=== PATIENT | male | born 1950 | race Caucasian/White ===

== ENCOUNTER 2020-08-13 08:06 | Outpatient (CLI) | payer MEDICARE, OTHER, SELFPAY ==
--- NOTE | 2020-08-13 08:15 | XR_ITS ---
WS: [id number] Exam: XR KUB [id number] Date/Time of Exam: 08/13/2020 8:15 AM Reason For Exam: N20.0 - Calculus of kidney Comparison 02/10/2019. No bowel obstruction or free air. No calcifications noted in the region of the kidneys. Visualized or ingrid margins are intact. XR/XR KUB [id number] IMPRESSION: 1. No no acute abdominal finding. 2. No calcified densities seen in the region of the kidneys.
== END 2020-08-13 08:07 | disposition home or self-care (01) ==
PROVIDERS: PCP Internal Medicine; Visit Provider Urology
DX: N20.0 Calculus of kidney (principal)
CPT/HCPCS: 74018; 81003; 87086; 88112; G0103

== ENCOUNTER 2020-09-12 08:45 | Outpatient (CLI) | payer MEDICARE, OTHER, SELFPAY ==
[2020-09-12 10:18] LABS: Blood Urea Nitrogen 16 mg/dL (8-23); Glomerular Filtration Rate 83.4 mL/min (90-130)
--- NOTE | 2020-09-12 10:30 | CT_ITS ---
WS: [id number] CT ABDOMEN AND PELVIS WITH AND WITHOUT CONTRAST HISTORY: MICROSCOPIC HEMATURIA TECHNIQUE: Unenhanced 5 mm axial imaging first performed through the abdomen. Post contrast imaging t hrough the abdomen and pelvis. Oral contrast has not been provided. Sagittal and coronal reformats a re submitted. All CT scans at [facility] use at least one of these dose optimization tech niques: automated exposure control; mA and/or kV adjustment per patient size (includes targeted exams where dose is matched to clinical indication); or iterative reconstruction. CONTRAST: Omnipaque 300; 95 mL IV. DLP: 3144.54 mGy.cm COMPARISON: 05/14/2017 Lung bases are clear. Heart size is normal. Small hiatal hernia. Normal size liver. There are numerous low-attenuation masses throughout the liver. The largest in the inferior RIGHT lobe measures 7.6 x 6.8 cm. Majority of these masses or cysts. Some of these smaller nodules cannot be evaluated completely. Normal portal vein. No bile duct obstruction. Gallbladder is negative. Mild splenic atrophy. Normal size spleen with granulomata. Ovoid low-attenuation 3.1 cm RIG HT adrenal mass with negative Hounsfield units on the noncontrast exam. LEFT adrenal gland is normal. Minimal atherosclerosis aorta with no aneurysm. RIGHT kidney: 10.6 cm in length. No calcification or obstruction. Stable 1.5 cm cyst lower pole. No f illing defects within the renal pelvis or the partially opacified RIGHT ureter. LEFT kidney: 11.6 cm in length. No renal obstruction or calcification. There are several parapelvic c ysts in the mid to lower kidney. Cortical cyst in the upper pole is unchanged with maximum diameter o f 1.1 cm. No solid mass. 2 small to characterize cortical hypodensities. Partially visualized and opa cified ureter. No GI tract obstruction. Numerous diverticula in the descending and sigmoid colon without acute infla mmation. No free fluid or abscess. Very mildly prominent prostate gland. No enhancing masses within t he bladder. Inguinal canals are patent bilaterally containing fat. Lumbar spondylosis. Fat-containing umbilical hernia. CT/CT abdomen pelvis wo/w [id number] IMPRESSION: 1. No renal calcification or obstruction. 2. Bilateral low-attenuation renal masses. Majority of these are cysts. Some a re too small to characterize. 3. No uroepithelial lesion in the visualized opacified ureters. 4. Hepatic cysts and additional too small to characterize low-attenuation nodu les. 5. RIGHT adrenal adenoma. 6. Significant diverticular disease in the descending and sigmoid colon withou t acute diverticulitis. 7. Mild prostate enlargement.
[2020-09-12] MEDS: iohexol 300 mg/mL 100 mL Btl IV (10:48)
== END 2020-09-12 08:46 | disposition home or self-care (01) ==
LOC: CT 08:45
PROVIDERS: PCP Internal Medicine; Visit Provider Urology
DX: R31.21 Asymptomatic microscopic hematuria (principal); N28.89 Other specified disorders of kidney and ureter; K76.89 Other specified diseases of liver; D35.01 Benign neoplasm of right adrenal gland; N40.0 Benign prostatic hyperplasia without lower urinary tract symptoms
CPT/HCPCS: 36415; 74178; 81003; 82565; 84520

== ENCOUNTER 2021-02-11 19:16 | Observation (INO) | payer MEDICARE, OTHER, SELFPAY ==
[2021-02-11] VITALS (21 sets, daily range): BP systolic 130–169; BP diastolic 81–93; PULSE 39–78; RESP 12–22; TEMP 36.3–36.6; O2SAT 93–100; BMI 31.2; BMI 31.6
--- NOTE | 2021-02-11 19:26 | CTR_ITS ---
PROCEDURE INFORMATION: Exam: CT Head Without Contrast Exam date and time: 02/11/2021 7:26 PM Age: 70 years old Clinical indication: Dizziness and other: Sudden onset n/v; Additional info: Symptoms of acute stroke TECHNIQUE: Imaging protocol: Computed tomography of the head without contrast. Radiation optimization: All CT scans at this facility use at least one of these dose optimization techniques: automated exposure control; mA and/or kV adjustment per patient size (includes targeted exams where dose is matched to clinical indication); or iterative reconstruction. Other technique: STROKE PROTOCOL was implemented. COMPARISON: No relevant prior studies available. RADIATION DOSE METRICS: Total DLP (mGy-cm): 979.86 FINDINGS: Brain: No hemorrhage or evidence of acute infarction is seen. No mass effect. Cerebral ventricles: No ventriculomegaly. Paranasal sinuses: Visualized sinuses are unremarkable. No fluid levels. Mastoid air cells: Visualized mastoid air cells are well aerated. Bones/joints: Unremarkable. No acute fracture. Soft tissues: Unremarkable. CT/CT head wo con* [id number] IMPRESSION: No acute intracranial abnormality. ASSESSMENT: ASPECTS ([place] Stroke Program Early CT Score) is 10. Radiation Dose CTDIVOL = (mGy): DLP = 979.86 (mGy-cm)
--- NOTE | 2021-02-11 19:26 | ECG_ITS ---
[facility] Test Date: 2021-02-11 Pat Name: Ap Matta Department: Room: Gender: Male Business Assistant: : 1950 Requested By: Jignesh Chan Order Number: [id number] Finn MD: Kyler Mccarthy M.D. Measurements Intervals [place] Rate: 57 P: 20 MA: 232 QRS: 4 QRSD: 134 T: 11 QT: 459 QTc: 450 Interpretive Statements SINUS BRADYCARDIA WITH FIRST DEGREE AV BLOCK INTRAVENTRICULAR CONDUCTION DELAY [130+ ms QRS DURATION] Nonspecific T wave changes No previous ECG available for comparison Electronically Signed On 02-11-2021 23:51:27 CDT by Kyler Mccarthy M.D. [email or web address]
--- NOTE | 2021-02-11 19:30 | CTR_ITS ---
PROCEDURE INFORMATION: Exam: CT Angiography Head With Contrast, Arteriography Exam date and time: 02/11/2021 7:30 PM Age: 70 years old Clinical indication: Dizziness and giddiness; Patient HX: Sudden onset of dizziness and n/v; Additional info: CVA TECHNIQUE: Imaging protocol: Computed tomography angiography of the head with contrast. Exam focused on the arteries. 3D rendering (Not supervised by radiologist): MIP and/or 3D reconstructed images were created by the technologist. Radiation optimization: All CT scans at this facility use at least one of these dose optimization techniques: automated exposure control; mA and/or kV adjustment per patient size (includes targeted exams where dose is matched to clinical indication); or iterative reconstruction. Contrast material: VISI 320; Contrast volume: 95 ml; Contrast route: INTRAVENOUS (IV); COMPARISON: CT head wo con* [id number] 02/11/2021 7:31 PM RADIATION DOSE METRICS: Total DLP (mGy-cm): 2254.82 FINDINGS: ANTERIOR CIRCULATION: Right internal carotid artery: Unremarkable. Intracranial segment is patent with no significant stenosis. No aneurysm. Right middle cerebral artery: Unremarkable. No occlusion or significant stenosis. No aneurysm. Right anterior cerebral artery: Unremarkable. No occlusion or significant stenosis. No aneurysm. Left internal carotid artery: Unremarkable. Intracranial segment is patent with no significant stenosis. No aneurysm. Left middle cerebral artery: Unremarkable. No occlusion or significant stenosis. No aneurysm. Left anterior cerebral artery: Unremarkable. No occlusion or significant stenosis. No aneurysm. POSTERIOR CIRCULATION: Right vertebral artery: Unremarkable. No occlusion or significant stenosis. No aneurysm. Left vertebral artery: Unremarkable. No occlusion or significant stenosis. No aneurysm. Basilar artery: Unremarkable. No occlusion or significant stenosis. No aneurysm. Right posterior cerebral artery: Unremarkable. No occlusion or significant stenosis. No aneurysm. Left posterior cerebral artery: Unremarkable. No occlusion or significant stenosis. No aneurysm. IMPRESSION: Patent intracranial arteries. PROCEDURE INFORMATION: Exam: CT Angiography Neck With Contrast Exam date and time: 02/11/2021 7:30 PM Age: 70 years old Clinical indication: Dizziness and giddiness; Patient HX: Sudden onset of dizziness and n/v; Additional info: CVA TECHNIQUE: Imaging protocol: Computed tomography angiography of the neck with contrast. 3D rendering (Not supervised by radiologist): MIP and/or 3D reconstructed images were created by the technologist. Radiation optimization: All CT scans at this facility use at least one of these dose optimization techniques: automated exposure control; mA and/or kV adjustment per patient size (includes targeted exams where dose is matched to clinical indication); or iterative reconstruction. Contrast material: VISI 320; Contrast volume: 95 ml; Contrast route: INTRAVENOUS (IV); COMPARISON: CT head wo con* [id number] 02/11/2021 7:31 PM RADIATION DOSE METRICS: Total DLP (mGy-cm): 2254.82 FINDINGS: Right common carotid artery: No stenosis. No dissection or occlusion. Right internal carotid artery: No stenosis of the extracranial segment. No dissection or occlusion. Right external carotid artery: No occlusion or stenosis of the origin. Left common carotid artery: No stenosis. No dissection or occlusion. Left internal carotid artery: No stenosis of the extracranial segment. No dissection or occlusion. Left external carotid artery: No occlusion or stenosis of the origin. Right vertebral artery: No stenosis. No dissection or occlusion. Left vertebral artery: No stenosis. No dissection or occlusion. Soft tissues: Normal. No significant soft tissue swelling. Bones/joints: Mild degenerative changes are observed in the cervical spine. No acute fracture. Spinal alignment is normal. CT/CT angio headneck* [id number] IMPRESSION: Patent neck carotid and vertebral arteries. REFERENCES: NASCET CRITERIA. The degree of internal carotid artery stenosis is based on NASCET criteria. Normal is no stenosis. Mild is less than 50% stenosis. Moderate is 50-69% stenosis. Severe is 70% to 99% stenosis. Total occlusion is no detectable patent lumen. Radiation Dose CTDIVOL = (mGy): DLP = 2254.82~2254.82 (mGy-cm)
[2021-02-11 19:37] LABS: Basophils # 0.1 10^3/uL (0.0-0.1); Basophils % 0.5 %; Eosinophils # 0.1 10^3/uL (0.0-0.8); Eosinophils % 0.9 %; Hematocrit 45.1 % (42.0-52.0); Hemoglobin 15.4 g/dL (11.7-16.6); Lymphocytes # 4.6 10^3/uL (0.8-4.8); Lymphocytes % 49.1 %; Mean Corpuscular HGB Conc 34.1 g/dL (30.0-36.0); Mean Corpuscular Hemoglobin 32.3 pg (28.0-34.0); Mean Corpuscular Volume 94.5 fl (80-94); Mean Platelet Volume 10.8 fL (7.4-10.4); Monocytes # 0.8 10^3/uL (0.2-0.9); Monocytes % 8.1 %; Neutrophils # 3.88 10^3/uL (1.8-7.7); Neutrophils % 41.2 %; Nucleated Red Blood Cells % 0 %; Platelet Count 184 10^3/cmm (130-400); Red Blood Count 4.77 10^6/uL (4.1-5.3); Red Cell Distribution Width 12.3 % (12.1-15.1); White Blood Count 9.4 10^3/uL (4.0-10.0)
[2021-02-11] MEDS: iodixanol 320 mg/mL 100mL Btl IV (19:37)
--- NOTE | 2021-02-11 19:37 | W.ED.NEUROSD ---
HPI - Neuro Symptoms/Deficit General: Chief Complaint: Nausea/Vomiting/Diarrhea Stated Complaint: N/V, DIZZY Time Seen by Provider: 02/11/21 19:19 Source: patient and EMS Mode of arrival: EMS Limitations: no limitations History of Present Illness: HPI Narrative: 70-year-old male states he had a sudden onset of dizziness at 6:30 PM. He states that he has had severe dizziness with any movement along with vomiting patient was given 8 mg of Zofran in route states he is feeling improved he had no weakness. He has no history of CVA lower peripheral vertigo in the past. X-ray from symptoms have improved but when I did standing up to walk him he vomited he was able to walk but did have some ataxia. Associated symptoms: Reports nausea and vomiting; Deny chest pain Review of Systems Const: Denies: fever(s), chills, body aches or change in appetite Eyes: Denies: blurry vision or eye discomfort ENMT: Denies: throat pain or dental pain Card: Denies: chest pain Resp: Denies: dyspnea GI: Reports: nausea and vomiting : Denies: dysuria Musc: Denies: neck pain or back pain Skin/Breast: Denies: rash Neuro: Reports: difficulty walking and dizziness Psych: Denies: depression Arsalan/Lymph: Denies: easy bruising All/Imm: Denies: urticaria PFSH ED PFSH: Medical History Adenoma of right adrenal gland Asymptomatic microscopic hematuria Hepatic cyst Hx of colonic polyps Parapelvic renal cyst Premature ventricular contraction Urolithiasis Not prolific. Did require treatment with lithotripsy Surgical History Hx of circumcision Hx of lithotripsy Family History Father , AT AGE 82 METASTATIC PROSTATE CANCER Cancer Hypertension Sister Cancer BREAST Hypertension Mother , AT AGE 76 ALZHEIMERS Dementia Social History Smoking and tobacco status: former smoker Alcohol intake: current Marital status: Current occupational status: retired NIH stroke score NIHSS: Level Of Consciousness - 1a: 0 Level Of Consciousness Questions - 1b: Both Correct Level Of Consciousness Commands - 1c: Both Correct Best Gaze - 2: Normal Visual Gill - 3: No Visual Loss Facial Palsy - 4: Normal Motor Arm Right - 5: No Drift Motor Arm Left - 5: No Drift Motor Leg Right - 6: No Drift Motor Leg Left - 6: No Drift Limb Ataxia - 7: Absent Sensory - 8: Normal Best Language - 9: No Aphasia Dysarthia - 10: Normal Extinction And Inattention - 11: 0 Score: Total Score: 0 Physical Exam Const: COMMON NORMALS: no acute distress, patient oriented x3, healthy appearing and alert ORIENTATION/CONSCIOUSNESS: Yes oriented to person, Yes oriented to place and Yes oriented to time HENMT: COMMON NORMALS: normocephalic and atraumatic HEAD & SCALP: normocephalic and atraumatic Eye: COMMON NORMALS: Equal, round and reactive pupils present and EOMs intact bilaterally PUPIL: Yes Equal, round and reactive pupils present Neck/C-Spine: COMMON NORMALS: full ROM and supple Chest: COMMONS NORMALS: normal inspection of the chest and normal palpation of entire chest wall Resp: COMMON NORMALS: normal respiratory effort, No retractions, No use of accessory muscles and clear to auscultation bilaterally AUSCULTATION: clear to auscultation bilaterally Cardio: COMMON NORMALS: regular rate, regular rhythm and No murmurs present (Cardio) RATE: regular rate RHYTHM: regular rhythm GI: COMMON NORMALS: Normal to inspection, nondistended, normoactive bowel sounds present, Soft to palpation, non-tender and no masses PALPATION: Yes Soft to palpation Extremity: COMMON NORMALS: normal to inspection and full ROM Neuro: COMMON NORMALS: patient oriented x3, moves all extremities and no focal motor deficits SENSORIUM/ORIENTATION: Yes alert, Yes oriented to person, Yes oriented to place and Yes oriented to time CRANIAL NERVES: Yes CN normal except as noted SPEECH: speech normal MOTOR EXAM: 5/5 motor strength present throughout OTHER: Slightly ataxic gait patient vomited from dizziness when standing Psych: COMMON NORMALS: mental status grossly normal, Normal thought process present and cooperative THOUGHT PROCESS: Normal thought process present Skin: COMMON NORMALS: no rashes or lesions noted and no wounds GENERAL SKIN EXAM: no rashes or lesions noted Course Vital Signs: Vital signs: Vital Signs Temperature 97.8 F 02/11/21 19:21 Pulse Rate 60 02/11/21 19:21 Respiratory Rate 18 02/11/21 19:21 Blood Pressure 169/85 02/11/21 19:56 Pulse Oximetry 100 02/11/21 19:21 MDM - Neuro Symptoms/Deficit MDM Narrative: Medical decision making narrative: Patient presents here with vertigo is likely peripheral in nature. He has severe vomiting difficulty walking with any sudden movements. CTA of his head here showed no signs of clot. Patient was seen by neurologist who recommended MRI in the morning and will admit for observation I spoke to hospitalist who will admit at this time. Lab Data: Labs: Lab Results 02/11/21 02/11/21 02/11/21 18:56 18:56 18:56 WBC 9.4 10^3/uL 10^3/ uL (4.0-10.0) RBC 4.77 10^6/uL 10^6 /uL (4.1-5.3) Hgb 15.4 g/dL g/dL (11.7-16.6) Hct 45.1 % % (42.0-52.0) MCV 94.5 fl H fl (80-94) MCH 32.3 pg pg (28.0-34.0) MCHC 34.1 g/dL g/dL (30.0-36.0) RDW 12.3 % % (12.1-15.1) Plt Count 184 10^3/cmm 10^3 /cmm (130-400) MPV 10.8 fL H fL (7.4-10.4) Neut % (Auto) 41.2 % % Lymph % (Auto) 49.1 % % Dickenson % (Auto) 8.1 % % Eos % (Auto) 0.9 % % Baso % (Auto) 0.5 % % Neut # (Auto) 3.88 10^3/uL 10^3 /uL (1.8-7.7) Lymph # (Auto) 4.6 10^3/uL 10^3/ uL (0.8-4.8) Dickenson # (Auto) 0.8 10^3/uL 10^3/ uL (0.2-0.9) Eos # (Auto) 0.1 10^3/uL 10^3/ uL (0.0-0.8) Baso # (Auto) 0.1 10^3/uL 10^3/ uL (0.0-0.1) Nucleated RBC % (a uto) 0 % % Nucleated RBCs # 0.0 /100WBC /100W BC PT 13.20 SECONDS SEC ONDS (12.1-14.9) INR 0.97 (0.8-1.2) APTT 22.7 SECONDS L SE CONDS (23.9-36.7) Sodium 142 mmol/L mmol/L (136-145) Potassium 3.5 mmol/L mmol/L (3.5-5.1) Chloride 105 mmol/L mmol/L (98-107) Carbon Dioxide 23 mmol/L mmol/L (22-29) Anion Gap 17.5 (5-19) BUN 14 mg/dL mg/dL (8-23) Creatinine 1.0 mg/dL mg/dL (0.7-1.2) GFR Calculation 73.9 mL/min L mL/ min (90-130) Glucose 94 mg/dL mg/dL (65-115) POC Glucose Calculated Osmolal ity 294 mOsm/kg mOsm/ kg (285-295) Calcium 8.9 mg/dL mg/dL (8.5-10.5) Total Bilirubin 0.6 mg/dL mg/dL (0.15-1.2) AST 17 U/L U/L (0-40) ALT 10 U/L U/L (0-41) Alkaline Phosphata se 47 IU/L IU/L (40-130) Total Protein 6.8 g/dL g/dL (6.6-8.7) Albumin 3.9 g/dL g/dL (3.5-5.2) Globulin 2.9 g/dL g/dL (1.3-4.6) 02/11/21 19:35 WBC RBC Hgb Hct MCV MCH MCHC RDW Plt Count MPV Neut % (Auto) Lymph % (Auto) Dickenson % (Auto) Eos % (Auto) Baso % (Auto) Neut # (Auto) Lymph # (Auto) Dickenson # (Auto) Eos # (Auto) Baso # (Auto) Nucleated RBC % (a uto) Nucleated RBCs # PT INR APTT Sodium Potassium Chloride Carbon Dioxide Anion Gap BUN Creatinine GFR Calculation Glucose POC Glucose 91 mg/dL mg/dL (70-110) Calculated Osmolal ity Calcium Total Bilirubin AST ALT Alkaline Phosphata se Total Protein Albumin Globulin Imaging Data^: CT Head: Attestation: I personally reviewed and interpreted this imaging study as follows: Radiologist's impression: [employer] [address] [address] Scan Report Signed Patient: Ap Matta Unit #: [id number] : 1950 Age/Sex: 70 / M ADM Date: 02/11/21 Loc: ER Room/Bed: Attending Dr: Ordering Provider/Ordering MD: Jignesh Chan MD Date of Service: 02/11/21 Procedure(s): CT head wo con* [id number] Accession Number(s): [id number] Report Number: [id number] PROCEDURE INFORMATION: Exam: CT Head Without Contrast Exam date and time: 02/11/2021 7:26 PM Age: 70 years old Clinical indication: Dizziness and other: Sudden onset n/v; Additional info: Symptoms of acute stroke TECHNIQUE: Imaging protocol: Computed tomography of the head without contrast. Radiation optimization: All CT scans at this facility use at least one of these dose optimization techniques: automated exposure control; mA and/or kV adjustment per patient size (includes targeted exams where dose is matched to clinical indication); or iterative reconstruction. Other technique: STROKE PROTOCOL was implemented. COMPARISON: No relevant prior studies available. RADIATION DOSE METRICS: Total DLP (mGy-cm): 979.86 FINDINGS: Brain: No hemorrhage or evidence of acute infarction is seen. No mass effect. Cerebral ventricles: No ventriculomegaly. Paranasal sinuses: Visualized sinuses are unremarkable. No fluid levels. Mastoid air cells: Visualized mastoid air cells are well aerated. Bones/joints: Unremarkable. No acute fracture. Soft tissues: Unremarkable. CT/CT head wo con* [id number] IMPRESSION: No acute intracranial abnormality. ASSESSMENT: ASPECTS ([place] Stroke Program Early CT Score) is 10. Radiation Dose CTDIVOL = (mGy): DLP = 979.86 (mGy-cm) Dictated By: Reg Bennett MD Signed By: Reg Bennett MD Signed Date/Time: 02/11/211944 DD/ [address]: Attestation: I personally reviewed and interpreted this imaging study as follows: Radiologist's impression: [employer] [place] [address] CT Scan Report Signed Patient: Ap Matta Unit #: [id number] : 1950 Age/Sex: 70 / M ADM Date: 02/11/21 Loc: ER Room/Bed: Attending Dr: Ordering Provider/Ordering MD: Jignesh Chan MD Date of Service: 02/11/21 Procedure(s): CT angio headneck* [id number] Accession Number(s): [id number] Report Number: [id number] PROCEDURE INFORMATION: Exam: CT Angiography Head With Contrast, Arteriography Exam date and time: 02/11/2021 7:30 PM Age: 70 years old Clinical indication: Dizziness and giddiness; Patient HX: Sudden onset of dizziness and n/v; Additional info: CVA TECHNIQUE: Imaging protocol: Computed tomography angiography of the head with contrast. Exam focused on the arteries. 3D rendering (Not supervised by radiologist): MIP and/or 3D reconstructed images were created by the technologist. Radiation optimization: All CT scans at this facility use at least one of these dose optimization techniques: automated exposure control; mA and/or kV adjustment per patient size (includes targeted exams where dose is matched to clinical indication); or iterative reconstruction. Contrast material: VISI 320; Contrast volume: 95 ml; Contrast route: INTRAVENOUS (IV); COMPARISON: CT head wo con* [id number] 02/11/2021 7:31 PM RADIATION DOSE METRICS: Total DLP (mGy-cm): 2254.82 FINDINGS: ANTERIOR CIRCULATION: Right internal carotid artery: Unremarkable. Intracranial segment is patent with no significant stenosis. No aneurysm. Right middle cerebral artery: Unremarkable. No occlusion or significant stenosis. No aneurysm. Right anterior cerebral artery: Unremarkable. No occlusion or significant stenosis. No aneurysm. Left internal carotid artery: Unremarkable. Intracranial segment is patent with no significant stenosis. No aneurysm. Left middle cerebral artery: Unremarkable. No occlusion or significant stenosis. No aneurysm. Left anterior cerebral artery: Unremarkable. No occlusion or significant stenosis. No aneurysm. POSTERIOR CIRCULATION: Right vertebral artery: Unremarkable. No occlusion or significant stenosis. No aneurysm. Left vertebral artery: Unremarkable. No occlusion or significant stenosis. No aneurysm. Basilar artery: Unremarkable. No occlusion or significant stenosis. No aneurysm. Right posterior cerebral artery: Unremarkable. No occlusion or significant stenosis. No aneurysm. Left posterior cerebral artery: Unremarkable. No occlusion or significant stenosis. No aneurysm. IMPRESSION: Patent intracranial arteries. PROCEDURE INFORMATION: Exam: CT Angiography Neck With Contrast Exam date and time: 02/11/2021 7:30 PM Age: 70 years old Clinical indication: Dizziness and giddiness; Patient HX: Sudden onset of dizziness and n/v; Additional info: CVA TECHNIQUE: Imaging protocol: Computed tomography angiography of the neck with contrast. 3D rendering (Not supervised by radiologist): MIP and/or 3D reconstructed images were created by the technologist. Radiation optimization: All CT scans at this facility use at least one of these dose optimization techniques: automated exposure control; mA and/or kV adjustment per patient size (includes targeted exams where dose is matched to clinical indication); or iterative reconstruction. Contrast material: VISI 320; Contrast volume: 95 ml; Contrast route: INTRAVENOUS (IV); COMPARISON: CT head wo con* [id number] 02/11/2021 7:31 PM RADIATION DOSE METRICS: Total DLP (mGy-cm): 2254.82 FINDINGS: Right common carotid artery: No stenosis. No dissection or occlusion. Right internal carotid artery: No stenosis of the extracranial segment. No dissection or occlusion. Right external carotid artery: No occlusion or stenosis of the origin. Left common carotid artery: No stenosis. No dissection or occlusion. Left internal carotid artery: No stenosis of the extracranial segment. No dissection or occlusion. Left external carotid artery: No occlusion or stenosis of the origin. Right vertebral artery: No stenosis. No dissection or occlusion. Left vertebral artery: No stenosis. No dissection or occlusion. Soft tissues: Normal. No significant soft tissue swelling. Bones/joints: Mild degenerative changes are observed in the cervical spine. No acute fracture. Spinal alignment is normal. CT/CT angio headneck* [id number] IMPRESSION: Patent neck carotid and vertebral arteries. REFERENCES: NASCET CRITERIA. The degree of internal carotid artery stenosis is based on NASCET criteria. Normal is no stenosis. Mild is less than 50% stenosis. Moderate is 50-69% stenosis. Severe is 70% to 99% stenosis. Total occlusion is no detectable patent lumen. Radiation Dose CTDIVOL = (mGy): DLP = 2254.82 2254.82 (mGy-cm) Dictated By: Reg Bennett MD Signed By: Reg Bennett MD Signed Date/Time: 02/11/211958 EKG Data^: EKG 1: Attestation: I personally reviewed and interpreted this EKG as follows: EKG interpretation date: 02/11/21 EKG interpretation time: 19:48 Interpretation: sinus salvador hr [address] or t wave abnormalities qrs 134 qtc 454 Discharge Plan Discharge Patient Disposition: Admitted As Inpatient Clinical Impression: Vertigo Condition: Stable Coding Level of Care Code ED Kiln Fireman for Chg Fwd Exam Comprehensive
[2021-02-11 19:38] LABS: Glucose Point of Care 91 mg/dL (70-110)
[2021-02-11 19:48] LABS: INR 0.97 (0.8-1.2)
[2021-02-11 19:49] LABS: Partial Thromboplastin Time 22.7 SECONDS (23.9-36.7)
[2021-02-11 19:53] LABS: Alanine Aminotransferase 10 U/L (0-41); Albumin Level 3.9 g/dL (3.5-5.2); Alkaline Phosphatase 47 IU/L (40-130); Anion Gap 17.5 (5-19); Aspartate Amino Transferase 17 U/L (0-40); Blood Urea Nitrogen 14 mg/dL (8-23); Calcium 8.9 mg/dL (8.5-10.5); Carbon Dioxide 23 mmol/L (22-29); Chloride 105 mmol/L (98-107); Globulin 2.9 g/dL (1.3-4.6); Glomerular Filtration Rate 73.9 mL/min (90-130); Glucose 94 mg/dL (65-115); Osmolality Calculated 294 mOsm/kg (285-295); Potassium 3.5 mmol/L (3.5-5.1); Sodium 142 mmol/L (136-145); Total Bilirubin 0.6 mg/dL (0.15-1.2); Total Protein 6.8 g/dL (6.6-8.7)
[2021-02-11] MEDS: sodium chloride 0.9% 1,000 ML 999 ML IV (19:54)
[2021-02-11] MEDS: meclizine 25 mg tablet 50 MG PO (20:14)
[2021-02-11] MEDS: LORazepam 2 mg/mL INJ 1 mL 1 MG IVP (20:36)
--- NOTE | 2021-02-11 23:31 | PM.HP ---
Providers/Chief Complaint Admitting Physician: Carmela Vogt MD Primary Care Provider: Ryan Pacheco DO Chief Complaint: N/V, DIZZY History of Present Illness Ap Matta is a 70 year old male planing of sudden onset of vertigo. He had been in the kitchen and walked into the sun room where he had planned on sitting down to the evening news. He had sudden onset of swimming and spinning sensation. He grabbed onto the wall and managed to sit down but despite this his symptoms did not ana. He had nausea and vomiting in addition to the constant spinning sensation. He has never had similar symptoms before. Denies recent upper respiratory symptoms. He is chronically on Flomax but has been on it for several years and not had any recent dosing changes. He denied any other symptoms. He was brought in by EMS. He received Zofran and was initially doing better though symptoms recurred immediately upon movement in the emergency room. NIH stroke scale in the ED was 0. He was seen by Dr. Acuna. Noncontrasted CT of the head was unrevealing for an acute process. CTA of the head neck did not show any acute blockages. Recommendation per Dr. Acuna according to the ED physician is for an MRI in the morning. In addition to meclizine, he received Ativan and IV fluids. Past medical history is remarkable primarily for urological issues. He drinks a couple of drinks a day. No history of hyperlipidemia, hypertension, coronary artery disease. Review of Systems Const: Denies: fever(s) Eyes: Reports: blurry vision ENMT: Denies: throat pain or nasal congestion Card: Denies: chest pain or edema Resp: Denies: dyspnea GI: Reports: nausea and vomiting; Denies: abdominal pain : Reports: other (No change in urine output) Musc: Denies: joint pain or joint redness Skin/Breast: Denies: rash or sores Neuro: Reports: dizziness and vertigo; Denies: headache(s), numbness in extremities or weakness in extremities [place]/Lymph: Denies: easy bruising or easy bleeding Medications/Allergies Home Medications Medication Instructions Recorded Confirmed Last Taken Type aspirin 81 mg tablet,delayed 81 mg PO DAILY 08/13/20 11/28/20 Unknown History release tamsulosin 0.4 mg capsule 0.4 mg PO DAILY 08/13/20 11/28/20 Unknown History Allergies Allergy/AdvReac Type Severity Reaction Status Date / Time No Known Allergies Allergy Verified 11/28/20 14:46 PFSH Acute PFSH: Medical History (Updated 02/12/21 @ 05:00 by Carmela Vogt MD) Adenoma of right adrenal gland Asymptomatic microscopic hematuria BPH (benign prostatic hyperplasia) Diverticulosis DVT (deep venous thrombosis) Hepatic cyst Hx of colonic polyps Parapelvic renal cyst Premature ventricular contraction Urolithiasis Not prolific. Did require treatment with lithotripsy. Calcium oxalate monohydrate. Surgical History (Updated 02/12/21 @ 02:13 by Carmela Vogt MD) History of colonoscopy (~2009) History of cystoscopy (05/2017) with stent right ureter for stone Hx of circumcision Hx of lithotripsy (05/2017) Family History (Updated 02/12/21 @ 02:15 by Carmela Vogt MD) Father , age 82 of metastatic prostate cancer Cancer Hypertension Sister Cancer Breast Hypertension Mother , age 76 from Alzheimer's Dementia Social History (Updated 02/12/21 @ 04:56 by Carmela Vogt MD) Smoking and tobacco status: former smoker Alcohol intake: current Alcohol intake frequency: 0-2 Drinks per Day Substance/Drug Use: never Marital status: Current occupational status: retired Vitals/I&O/Wt Last Vital Signs Temp 97.6 F 02/11/21 23:15 Pulse 74 02/11/21 23:15 Resp 18 02/11/21 23:15 BP 130/82 02/11/21 23:15 Pulse Ox 96 02/11/21 23:15 02/11/21 02/11/21 02/12/21 14:59 22:59 06:59 Intake Total 1000 / 1000 Balance 1000 / 1000 Weight last 48 hrs Weight 93.168 kg Physical Exam Narrative: EXAM NARRATIVE: Constitutional: Awake and alert, cooperative HEENT: No photophobia, normocephalic, no nystagmus, extraocular movements are intact, has multiple lower teeth overlapping, moist mucous membranes, no rhinorrhea or posterior erythema Neck: Supple Respiratory: Clear to auscultation bilaterally Cardiovascular: Regular rate and rhythm Abdomen: Soft, nontender, positive bowel sounds Extremities: No pitting edema Skin: Dry, no acute rashes Neuro: Speech clear, face symmetric, moves all extremities, currently able to move head from side to side without elicitable vertigo and able to rise a bit from supine to sitting without symptoms presently. Did not to stand/walk presently Psych: Normal effect Data : 02/11/21 18:56 02/11/21 18:56 Other Labs: Laboratory Results WBC 9.4 10^3/uL (4.0-10.0) 02/11/21 18:56 RBC 4.77 10^6/uL (4.1-5.3) 02/11/21 18:56 Hgb 15.4 g/dL (11.7-16.6) 02/11/21 18:56 Hct 45.1 % (42.0-52.0) 02/11/21 18:56 MCV 94.5 fl (80-94) H 02/11/21 18:56 MCH 32.3 pg (28.0-34.0) 02/11/21 18:56 MCHC 34.1 g/dL (30.0-36.0) 02/11/21 18:56 RDW 12.3 % (12.1-15.1) 02/11/21 18:56 Plt Count 184 10^3/cmm (130-400) 02/11/21 18:56 MPV 10.8 fL (7.4-10.4) H 02/11/21 18:56 Neut % (Auto) 41.2 % 02/11/21 18:56 Lymph % (Auto) 49.1 % 02/11/21 18:56 [place] % (Auto) 8.1 % 02/11/21 18:56 Eos % (Auto) 0.9 % 02/11/21 18:56 Baso % (Auto) 0.5 % 02/11/21 18:56 Neut # (Auto) 3.88 10^3/uL (1.8-7.7) 02/11/21 18:56 Lymph # (Auto) 4.6 10^3/uL (0.8-4.8) 02/11/21 18:56 [place] # (Auto) 0.8 10^3/uL (0.2-0.9) 02/11/21 18:56 Eos # (Auto) 0.1 10^3/uL (0.0-0.8) 02/11/21 18:56 Baso # (Auto) 0.1 10^3/uL (0.0-0.1) 02/11/21 18:56 Nucleated RBC % (auto) 0 % 02/11/21 18:56 Nucleated RBCs # 0.0 /100WBC 02/11/21 18:56 PT 13.20 SECONDS (12.1-14.9) 02/11/21 18:56 INR 0.97 (0.8-1.2) 02/11/21 18:56 APTT 22.7 SECONDS (23.9-36.7) L 02/11/21 18:56 Sodium 142 mmol/L (136-145) 02/11/21 18:56 Potassium 3.5 mmol/L (3.5-5.1) 02/11/21 18:56 Chloride 105 mmol/L (98-107) 02/11/21 18:56 Carbon Dioxide 23 mmol/L (22-29) 02/11/21 18:56 Anion Gap 17.5 (5-19) 02/11/21 18:56 BUN 14 mg/dL (8-23) 02/11/21 18:56 Creatinine 1.0 mg/dL (0.7-1.2) 02/11/21 18:56 GFR Calculation 73.9 mL/min (90-130) L 02/11/21 18:56 Glucose 94 mg/dL (65-115) 02/11/21 18:56 POC Glucose 91 mg/dL (70-110) 02/11/21 19:35 Calculated Osmolality 294 mOsm/kg (285-295) 02/11/21 18:56 Calcium 8.9 mg/dL (8.5-10.5) 02/11/21 18:56 Total Bilirubin 0.6 mg/dL (0.15-1.2) 02/11/21 18:56 AST 17 U/L (0-40) 02/11/21 18:56 ALT 10 U/L (0-41) 02/11/21 18:56 Alkaline Phosphatase 47 IU/L (40-130) 02/11/21 18:56 Total Protein 6.8 g/dL (6.6-8.7) 02/11/21 18:56 Albumin 3.9 g/dL (3.5-5.2) 02/11/21 18:56 Globulin 2.9 g/dL (1.3-4.6) 02/11/21 18:[address] 02/11/21 19:26 IMPRESSION: No acute intracranial abnormality. ASSESSMENT: ASPECTS ([place] Stroke Program Early CT Score) is 10. Radiation Dose CTDIVOL = (mGy): DLP = 979.86 (mGy-cm) Head/Neck CTA 02/11/21 19:30 IMPRESSION: Patent intracranial arteries. IMPRESSION: Patent neck carotid and vertebral arteries. REFERENCES: NASCET CRITERIA. The degree of internal carotid artery stenosis is based on NASCET criteria. Normal is no stenosis. Mild is less than 50% stenosis. Moderate is 50-69% stenosis. Severe is 70% to 99% stenosis. Total occlusion is no detectable patent lumen. Radiation Dose CTDIVOL = (mGy): DLP = 2254.82~2254.82 (mGy-cm) A&P Assessment and plan (1) Vertigo: Sudden onset, severe, with no prior history Status: Acute (2) BPH (benign prostatic hyperplasia): Status: Chronic Qualifiers: Lower urinary tract symptom presence: symptoms present Lower urinary tract symptom detail: unspecified Qualified Code(s): N40.1 - Benign prostatic hyperplasia with lower urinary tract symptoms Additional A&P Information Observation admission Serial neuro exams Meclizine scheduled Ativan as needed Continue IV fluids MRI head is ordered for in the morning as per neurology recommendations given the sudden onset of symptoms Continue home medications as able to tolerate Check lipid panel and TSH SCDs for DVT prophylaxis Supportive care otherwise Plans were discussed with patient and she was given an opportunity to ask questions Anticipate discharge home when medically improved Attestations Medical Necessity Statement*: Anticipate a stay less than 2 midnights currently in a patient with sudden onset vertiginous symptoms concerning for cerebrovascular event though work-up thus far is unrevealing. Plans are as noted above. Coding Level of Care Code Acute Knuckle Strap Sewer for Malik Anderson Diagnoses Vertigo R42 BPH (benign prostatic hyperplasia) N40.1 Lower urinary tract symptom presence: symptoms present Lower urinary tract symptom detail: unspecified
[2021-02-12] VITALS: BP 130/82; PULSE 74; RESP 18; TEMP 36.4; O2SAT 96
[2021-02-12] MEDS: dextrose 5%-sod chloride 0.45% 1,000 ML 75 ML IV (00:21)
[2021-02-12 01:39] VITALS: PULSE 74; O2SAT 96
[2021-02-12 02:12] LABS: Bilirubin Urine Neg (Negative); Blood Urine 2+ (Negative); Glucose Urine UA Norm (Normal); Ketones Urine Negative (Negative); Leukocyte Esterase Urine Negative (Negative); Nitrate Urine Negative (Negative); Protein Urine Neg (Negative); Urine Appearance Clear (CLEAR); Urine Color Yellow (Yellow); Urobilinogen Urine Norm (Negative); pH Urine 8 (5-7)
[2021-02-12 02:13] LABS: Add Urine Microscopic? YES
[2021-02-12 04:00] VITALS: TEMP 36.8
[2021-02-12 04:36] VITALS: BP 124/74; PULSE 69; RESP 18; TEMP 36.8; O2SAT 97
[2021-02-12 06:02] LABS: Chol HDL Ratio 3.24 mg/dL (1.0-5.00); Cholesterol 162 mg/dL (0-200); HDL Cholesterol 50 mg/dL (60-100); LDL Cholesterol Calculated 95 mg/dL (50-129); Triglycerides 83 mg/dL (0-150)
[2021-02-12 06:42] LABS: Thyroid Stimulating Hormone 0.62 uIU/mL (0.27-4.20)
[2021-02-12 07:40] VITALS: BP 148/81; PULSE 67; RESP 16; TEMP 37.1; O2SAT 97
--- NOTE | 2021-02-12 08:10 | PM.SAN ---
Stroke Alert Activation ED Arrival Date: 02/11/21 ED Arrival Time: 19:19 ED Physican at Bedside: 19:19 Last Known Normal/at Baseline: < 1 hour ago Other Last Known Well Infomation: Stroke team was activated at 1927 for this 70-year-old man. He was at home with his , had dinner and did the dishes after a vigorous day of picking up sticks and burning brush. As he walked into the sun room he suddenly experienced severe vertigo. He was nauseated and experienced severe diarrhea. He had trouble walking. His vertigo was rotational, he believes clockwise. Stroke team was activated on arrival to triage. Dr. Chan evaluated him immediately and did not find any focal signs. I talked with Dr. Chan as soon as he completed his assessment and we agreed that I should come and evaluate the patient on the chance that this could be a posterior circulation stroke. I talked with the patient, his son Lex and his Nancy. By that time he had received several doses of Zofran for severe vertigo and vomiting. He was feeling much more comfortable as long as he stayed still on the stretcher. I did not get him up because Dr. Chan had watched him walk into the room and get on the stretcher and noticed that he was able to walk although he was nauseated and actively vomiting. I performed an NIH stroke scale and found a score of 0. I reviewed his CT of the head and CTA and returned and repeated cranial nerve exam and motor exam and again found a score of 0. I explained to the patient and his family that this appears to be a peripheral problem, likely acute labyrinthitis, but that if his symptoms do not improve by morning we will do an MRI of the brain. Stroke Alert Activated by: Triage Stroke Alert Activation Time: 19:27 Stroke MD @ Bedside Time: 20:45 NIH Stroke Scale Time: 20:45 NIH Stroke Scale Score: NIH Stroke Scale Score: 0 NIH stroke score NIHSS: Level Of Consciousness - 1a: 0 Level Of Consciousness Questions - 1b: Both Correct Level Of Consciousness Commands - 1c: Both Correct Best Gaze - 2: Normal Visual Gill - 3: No Visual Loss Facial Palsy - 4: Normal Motor Arm Right - 5: No Drift Motor Arm Left - 5: No Drift Motor Leg Right - 6: No Drift Motor Leg Left - 6: No Drift Limb Ataxia - 7: Absent Sensory - 8: Normal Best Language - 9: No Aphasia Dysarthia - 10: Normal Extinction And Inattention - 11: 0 Score: Total Score: 0 Stroke Alert Data/Treatment Time to CT of Head: 19:30 CT Impression: Normal. CTA shows intact posterior circulation. tPA Contraindication: tPA Contraindication: Treatment not indcated tPA Admin Prior to Arrival: No Patient & Family Educated on: Treament Plan and Prognosis Other Patient & Family Education: labyrinthitis Standardized Stroke Orders Used: Yes Critical Care Time Critical Care Time: 30 - 74 mins A&P Assessment and plan (1) Vertigo: Intense vertigo with vomiting but no nystagmus and no focal findings on examination. Based on age he is at risk of posterior circulation ischemia. None evident by CT angiogram but this does not rule out a small embolus that has passed the circulation evident by CTA. Plan on observing overnight and if his symptoms do not subside by morning I would advocate MRI first thing in the morning. I talked with Dr. Chan. I talked with the patient and his family and explained the plan to their satisfaction. Status: Acute Coding Level of Care Code Acute Senior Php Software Developer for Malik Anderson Diagnoses Vertigo R42
[2021-02-12] MEDS: aspirin 81 mg EC Tablet PO (08:16)
[2021-02-12] MEDS: meclizine 25 mg tablet PO (08:16)
[2021-02-12] MEDS: tamsulosin 0.4 mg Capsule PO (08:16)
--- NOTE | 2021-02-12 09:19 | PC.CHAP ---
Pastoral Care Encounter/Spiritual Assessment Type of Contact [] Declined powerhouse helper visit [] Patient/Family/Request visit [] Outpatient visit [] Follow-up visit [] Physician referral [] Code/Alert [x] Routine visit [] Staff referral [] Actively dying [] Patient sleeping [] Family support [] [] Out of room [] Palliative care [] [] Receiving care in room [] Pre-surgical visit [] Trauma [] Long length of stay [] ICU visit [] Other: Relational/Emotional Strength [x] Patient feels connected with others/family/visitors/staff [] Distress [] Loneliness/isolation [] Abandonment Spirituality of Patient [x] Person of Thelma [x] Attends Islam of their Thelma [x] Believes in Prayer [x] Reads Bible or Mu-Ism materials [] There are Spiritual issues to be addressed Communications Technician Interventions [x] Prayer [x] Active listening [x] Non-anxious presence [x] Spiritual/emotional support [] Crisis/trauma care [] Spiritual counseling [] Bereavement support [] Provided bereavement packet [] Provided Bible/devotional materials [] Provided toy/stuffed animal, coloring book to patient or family member [] Provided Communion [] Anointing/[place] [] Salvation [x] Completed spiritual assessment [] Other: Impact on Illness or Injury [] Angry [] Fearful [] Anxious [] Often cries [] Exhaustion [] Unable to work [] Unable to attend moravian [] Unable to walk/stand [] Unable to read [] Unable to drive [] Unable to eat/drink [] Unable to sleep [] Unable to be with family [] Patient intubated [] Other: Summary Pt's was present for visit. Pt was brought in last evening and described the experience as scary. However, things are calmer now and they have a treatment plan. Undergoing an MRI today and may get to go home after. They have two sons who live nearby. They are of the Protestant thelma. Requested prayer. Time spent with patient 10m
--- NOTE | 2021-02-12 10:15 | MR_ITS ---
WS: [id number] MRI BRAIN WITHOUT CONTRAST HISTORY: cva COMPARISON: 02/11/[address] TECHNIQUE: Diffusion imaging, multiplanar T1, T2 and FLAIR imaging obtained. No evidence for acute infarct or hemorrhage. Prasad-white matter differentiation is normal. Very mild symmetric cerebral atrophy. There are a few scattered subcortical T2 and FLAIR signal hyper intensities predominantly within the frontal lobes bilaterally. No prior large territory infarct. Ventricles and extra-axial spaces are normal. No inferior displacement of cerebellar tonsils. The sella turcica and pituitary gland are unremarkabl e. Dural venous sinuses and [place] demonstrate no abnormality on this unenhanced studies. Small lobulated cyst within the superficial LEFT parotid gland measures 7.7 mm. Paranasal sinuses: Mucous retention cysts in the RIGHT maxillary sinus. No air-fluid levels. Mastoid air cells: Normal. Calvarium and scalp: Intact. MR/MR head wo con* [id number] IMPRESSION: 1. No acute infarct. 2. Mild chronic microvascular ischemic type changes predominantly within the s ubcortical frontal lobes bilaterally. 3. Very mild cerebral atrophy is age-appropriate. 4. No hemorrhage.
--- NOTE | 2021-02-12 10:15 | MR_ITS ---
WS: [id number] MRA ANGIOGRAPHY [place] HISTORY: CVA COMPARISON: None available. TECHNIQUE: 3-D MR angiography is performed of the [place]. All images are reviewed including source images. Distal vertebral and basilar arteries are intact with no significant stenosis or plaque. Posterior ce rebral arteries are normal course and caliber. Posterior communicating arteries are both patent. LEFT posterior communicating arteries are very small caliber. Intracranial portion of the internal carotid arteries are normal course and caliber. No significant a therosclerosis, stenosis or aneurysm identified. Middle and anterior cerebral arteries are both paten t with no significant disease. Anterior communicating artery is also normal. MR/MR angio head wo con [id number] IMPRESSION: Normal MRA [place].
--- NOTE | 2021-02-12 12:22 | P.PN_ITS ---
Subjective Subjective: Interval history: He has not been dizzy this morning. I saw him at 8 AM and he had not been out of bed. No further vertigo. No other symptoms. Vitals/I&O/Wt Last Vital Signs Temp 98.7 F 02/12/21 07:40 Pulse 67 02/12/21 07:40 Resp 16 02/12/21 07:40 BP 148/81 02/12/21 07:40 Pulse Ox 97 02/12/21 07:40 02/11/21 02/12/21 02/12/21 22:59 06:59 14:59 Intake Total 1000 / 1000 480 / 480 Output Total 425 / 425 300 / 300 Balance 575 / 575 180 / 180 Weight last 48 hrs Weight 205 lb 6.4 oz Weight 208 lb Weight 205 lb 6.4 oz Physical Exam 2 Narrative: EXAM NARRATIVE: GENERAL: The patient was well-nourished with a healthy appearance and appropriately groomed. MENTAL STATUS: Orientation was full to 10 of 10 questions of orientation. Speech was fluent without word hesitation. No difficulty following a complex command. The affect was euthymic. CRANIAL NERVES: Visual terrell were full to confrontation, direct and consensual. Extraocular movements were full without nystagmus. PERRLA. Face was symmetric at rest and with grimace. Facial sensation was intact in all three distributions of the fifth cranial nerve bilaterally to touch. Tongue and palate were midline at rest and with protrusion of the tongue and elevation of the palate. Shoulders were symmetric at rest and with shoulder shrug. MOTOR: There was no drift of the extended arms. Fine movements in the hands were rapid and symmetric. SENSATION: Touch intact in the four extremities distally. COORDINATION: He was able to stand at the bedside with the feet together without falling. He was able to march in place at the bedside CARDIOVASCULAR: The heart sounds were normal without murmur or gallop. Regular rate and rhythm. Data : 02/11/21 18:56 02/11/21 18:56 A&P Assessment and plan (1) Vertigo: 70-year-old man presented with intense vertigo with vomiting and inability to stand or ambulate. Because of his age it was my impression that he was high risk for stroke. His posterior circulation appeared to be intact although the right posterior cerebral artery appeared a little bit tenuous on my review of his CTA. He has now completed MRI with MRA and his brainstem is unremarkable. I talked with Dr. Knight. The patient may be discharged. I do not need to see him again unless he has further problems. I talked with the patient and his about healthy behaviors for stroke prevention. Status: Acute Attestations Medical Necessity Statement*: Acute profound vertigo with high risk for posterior circulation stroke Coding Level of Care Code Acute Studio Coordinator for Malik Anderson Diagnoses Vertigo R42
--- NOTE | 2021-02-12 12:25 | P.DS_ITS ---
Discharge Providers Date of Admission: 02/11/21 21:06 Date of Discharge: February 12, 2021 Attending Provider at Admission: Carmela Vogt MD Attending Provider at Discharge: Black Knight Primary Care Provider: Ryan Pacheco DO Diagnoses at Discharge Discharge Diagnosis (1) Vertigo: Status: Acute Reason for Visit Reason for Visit: N/V, DIZZY [id number] R42 Hospital Course Hospital Course 70-year-old gentleman was placed in observation due to sudden onset vertigo, was assessed as part of stroke code on presentation. CT head was unremarkable. Was assessed by CT angiogram head and neck which also was unremarkable. Was seen by neurology. Center etiology could not be definitively ruled out, although suspicion more for peripheral etiology like labyrinthitis. This morning he was assessed by MRI, MRI of the brain which showed no acute infarct. Chronic microvascular ischemic type changes predominate within subcortical frontal lobes bilaterally. Very mild cerebral atrophy, age-appropriate. MRA unremarkable. He is feeling well, no further vertigo episodes while at rest or getting up and walking to the restroom on several occasions. He is feeling well and wants to return home. Denies any additional changes no change in his hearing, no hearing loss, no tinnitus. He is provided with short supply of Zofran and meclizine, instructed to avoid if possible taking for longer than 3 days, although with resolution of all symptoms, may not need tramadol. He is referred for vestibular rehabilitation as well, although may cancel appointment in case there is no recurrence of symptoms. Based on ASCVD risk he is started on statin. Physical Exam Narrative: EXAM NARRATIVE: at bedside. Const: COMMON NORMALS: no acute distress and patient oriented x3 HENMT: COMMON NORMALS: oropharynx normal Neck/C-Spine: COMMON NORMALS: no meningeal signs and no JVD Resp: COMMON NORMALS: normal respiratory effort and clear to auscultation bilaterally AUSCULTATION: clear to auscultation bilaterally Cardio: COMMON NORMALS: no JVD, regular rhythm, S1 normal heart sound present, S2 normal heart sound present and No murmurs present (Cardio) RHYTHM: regular rhythm HEART SOUNDS: S1 normal heart sound present and S2 normal heart sound present GI: COMMON NORMALS: Normal to inspection, nondistended, normoactive bowel so unds present, Soft to palpation and non-tender PALPATION: Yes Soft to palpation Extremity: COMMON NORMALS: no joint enlargement and no pedal edema Neuro: COMMON NORMALS: patient oriented x3, moves all extremities and no sensory deficits noted MENINGEAL SIGNS: Yes no meningeal signs COORDINATION/BALANCE: [id number] test normal SPEECH: speech normal SENSORY EXAM: Yes extremities (symmetrical) and Normal double simultaneous stimulation for sensation MOTOR EXAM: 5/5 motor strength present throughout and Pronator motor function not present COORDINATION: [id number] test normal OTHER: No difficulty tracking. Skin: COMMON NORMALS: no rashes or lesions noted GENERAL SKIN EXAM: no rashes or lesions noted Discharge Data Data Completed and Pending: Completed Studies During Hospitalization Category Date Time Status CT angio headneck * [id number] Urge nt Cat Scan 02/11/21 19:[address] head wo con* 7 0450 Stat Cat Scan 02/11/21 19:26 Completed MR angio head wo con [id number] Routine MRI 02/12/21 10:15 Completed MR head wo con* [id number] Urgent MRI 02/12/21 10:15 Completed Labs from last 24 hours 02/12/21 02/12/21 02/12/21 04:57 04:57 01:15 WBC RBC Hgb Hct MCV MCH MCHC RDW Plt Count MPV Neut % (Auto) Lymph % (Auto) [place] % (Auto) Eos % (Auto) Baso % (Auto) Neut # (Auto) Lymph # (Auto) [place] # (Auto) Eos # (Auto) Baso # (Auto) Nucleated RBC % (a uto) Nucleated RBCs # PT INR APTT Sodium Potassium Chloride Carbon Dioxide Anion Gap BUN Creatinine GFR Calculation Glucose POC Glucose Calculated Osmolal ity Calcium Total Bilirubin AST ALT Alkaline Phosphata se Total Protein Albumin Globulin Triglycerides 83 Cholesterol 162 LDL Cholesterol, C alc 95 HDL Cholesterol 50 L LDL/HDL Ratio 1.90 Cholesterol/HDL [place] pa[place] 3.24 TSH 0.62 Urine Color Yellow Urine Appearance Clear Urine pH 8 H Ur Specific Gravit y 1.010 Urine Protein Neg Urine Glucose (UA) Norm Urine Ketones Negative Urine Blood 2+ H Urine Nitrate Negative Urine Bilirubin Neg Urine Urobilinogen Norm Ur Leukocyte Angella ase Negative Urine RBC None Urine WBC None Ur Squamous Epith Cells None Amorphous Sediment Not Reportable Urine Bacteria None 02/11/21 02/11/21 02/11/21 19:35 18:56 18:56 WBC RBC Hgb Hct MCV MCH MCHC RDW Plt Count MPV Neut % (Auto) Lymph % (Auto) [place] % (Auto) Eos % (Auto) Baso % (Auto) Neut # (Auto) Lymph # (Auto) [place] # (Auto) Eos # (Auto) Baso # (Auto) Nucleated RBC % (a uto) Nucleated RBCs # PT 13.20 INR 0.97 APTT 22.7 L Sodium 142 Potassium 3.5 Chloride 105 Carbon Dioxide 23 Anion Gap 17.5 BUN 14 Creatinine 1.0 GFR Calculation 73.9 L Glucose 94 POC Glucose 91 Calculated Osmolal ity 294 Calcium 8.9 Total Bilirubin 0.6 AST 17 ALT 10 Alkaline Phosphata se 47 Total Protein 6.8 Albumin 3.9 Globulin 2.9 Triglycerides Cholesterol LDL Cholesterol, C alc HDL Cholesterol LDL/HDL Ratio Cholesterol/HDL [place] TSH Urine Color Urine Appearance Urine pH Ur Specific Gravit y Urine Protein Urine Glucose (UA) Urine Ketones Urine Blood Urine Nitrate Urine Bilirubin Urine Urobilinogen Ur Leukocyte Angella ase Urine RBC Urine WBC Ur Squamous Epith Cells Amorphous Sediment Urine Bacteria 02/11/21 18:56 WBC 9.4 RBC 4.77 Hgb 15.4 Hct 45.1 MCV 94.5 H MCH 32.3 MCHC 34.1 RDW 12.3 Plt Count 184 MPV 10.8 H Neut % (Auto) 41.2 Lymph % (Auto) 49.1 [place] % (Auto) 8.1 Eos % (Auto) 0.9 Baso % (Auto) 0.5 Neut # (Auto) 3.88 Lymph # (Auto) 4.6 [place] # (Auto) 0.8 Eos # (Auto) 0.1 Baso # (Auto) 0.1 Nucleated RBC % (a uto) 0 Nucleated RBCs # 0.0 PT INR APTT Sodium Potassium Chloride Carbon Dioxide Anion Gap BUN Creatinine GFR Calculation Glucose POC Glucose Calculated Osmolal ity Calcium Total Bilirubin AST ALT Alkaline Phosphata se Total Protein Albumin Globulin Triglycerides Cholesterol LDL Cholesterol, C alc HDL Cholesterol LDL/HDL Ratio Cholesterol/HDL [place] TSH Urine Color Urine Appearance Urine pH Ur Specific Gravit y Urine Protein Urine Glucose (UA) Urine Ketones Urine Blood Urine Nitrate Urine Bilirubin Urine Urobilinogen Ur Leukocyte Angella ase Urine RBC Urine WBC Ur Squamous Epith Cells Amorphous Sediment Urine Bacteria Vitals: Last Vital Signs Temp 98.7 F 02/12/21 07:40 Pulse 67 02/12/21 07:40 Resp 16 02/12/21 07:40 BP 148/81 02/12/21 07:40 Pulse Ox 97 02/12/21 07:40 Discharge Plan Discharge Patient Disposition: Home Condition: Stable Prescriptions: New meclizine 25 mg Tablet 25 mg PO TID 3 Days Qty: 9 RF: 0 ondansetron 4 mg tablet,disintegrating 4 mg PO BID PRN (Reason: nausea and vomiting) 4 Days Qty: 8 RF: 0 atorvastatin 40 mg tablet 40 mg PO QPM Qty: 90 RF: 0 Continued tamsulosin 0.4 mg capsule 0.4 mg PO DAILY RF: 0 aspirin [Adult Low Dose Aspirin] 81 mg tablet,delayed release (DR/EC) 81 mg PO DAILY RF: 0 Discharge Orders: Discharge Order (Routine); Ordered 02/12/21 Ordered By: Black Knight Other Ambulatory Orders: Physical Therapy Eval and Treat Outpatient (Order) Timeframe: 2 Days Facility: [facility] - Location: Physical Therapy Ordered By: Black Knight Referrals: Ryan Pacheco DO [Primary Care Provider] - 4-7 days Discharge Diet: Advance as tolerated Discharge Activity: Increase activity as tolerated Patient Instructions: Atorvastatin (By mouth), Vertigo (GEN) Activity Restrictions/Additional Instructions: Please follow-up with your primary doctor, discuss your symptoms, follow-up for resolution. Try to avoid taking meclizine and if possible Zofran for longer than 3 days. Take only if needed. Discussed with your primary doctor regarding possible labirynthitis, possible benign paroxysmal positional vertigo. If you experience any vision changes, trouble speaking, facial asymmetry, numbness or weakness in extremity, or persistent, not resolving dizziness, proceed to ER. Based on your risk factors for cardiovascular disease you are started on a cholesterol medication. Discharge Attestations Time Spent in Discharge Care*: greater than 30 min Quality Metrics Clinical Quality Measures During this hospital stay, did patient experience: None Coding Level of Care Code Acute Chg FW DC note Diagnoses Vertigo R42
[2021-02-12 13:11] VITALS: BP 148/81; PULSE 67; RESP 16; TEMP 37.1; O2SAT 97
--- NOTE | 2021-02-12 13:11 | PC.NURSE ---
ALL DISCHARGE INSTRUCTIONS REVIEWED WITH PATIENT AND AT BEDSIDE, ALL QUESTIONS ANSWERED, PT AND VERBALIZED UNDERSTANDING. IV LINE DISCONTINUED.
== END 2021-02-12 13:12 | disposition home or self-care (01) ==
LOC: ER 21:07 → MEDSURG 21:43
PROVIDERS: Admitting Provider Hospitalist; Emergency Provider Emergency Medicine; PCP Internal Medicine; Visit Provider Internal Medicine
DX: R42 Dizziness and giddiness (principal); N40.0 Benign prostatic hyperplasia without lower urinary tract symptoms; Z79.82 Long term (current) use of aspirin; Z86.718 Personal history of other venous thrombosis and embolism; Z87.891 Personal history of nicotine dependence; Z79.899 Other long term (current) drug therapy
CPT/HCPCS: 36415; 36416; 70450; 70496; 70498; 70544; 70551; 80053; 80061; 81001; 82962; 84443; 85025; 85610; 85730; 93005; 96361; 96374; 99285; G0378; J2060; J7030; J7799; J8597; Q9967

== ENCOUNTER 2021-02-15 06:00 | Outpatient (RCR) | payer MEDICARE, OTHER, SELFPAY | END 2021-02-17 23:59 | disposition home or self-care (01) | LOC: SPT 06:00 | PROVIDERS: PCP Internal Medicine; Referring Provider Internal Medicine; Visit Provider Internal Medicine | DX: R42 Dizziness and giddiness (principal) | CPT/HCPCS: 95992; 97162 ==

== ENCOUNTER 2021-04-30 14:47 | Outpatient (CLI) | payer MEDICARE, OTHER, SELFPAY ==
[2021-04-30 14:58] VITALS: BP 134/76; PULSE 60; RESP 16; TEMP 36.9; O2SAT 95; BMI 29.6
[2021-04-30 15:00] VITALS: BP 130/74; PULSE 70; RESP 18; TEMP 36.7; O2SAT 95
[2021-04-30 15:45] VITALS: BP 107/67; PULSE 65; RESP 16; TEMP 36.7; O2SAT 97
== END 2021-04-30 14:48 | disposition home or self-care (01) ==
LOC: OPS 14:50
PROVIDERS: PCP Internal Medicine; Visit Provider Nurse Practitioner Family
DX: U07.1 COVID-19 (principal)
CPT/HCPCS: 96365

== ENCOUNTER 2021-05-29 09:04 | Outpatient (CLI) | payer MEDICARE, OTHER, SELFPAY ==
--- NOTE | 2021-05-29 09:13 | CT_ITS ---
WS: [id number] CT ABDOMEN NON-CONTRAST PLUS CONTRAST TECHNIQUE: Noncontrast CT of the abdomen and contrast-enhanced CT of the abdomen with coronal and sag ittal reformatted images. CLINICAL INFORMATION: ADRENAL NODULE COMPARISON: September 12, 2020 DLP: [id number] scans at [facility] use at least one of these dose optimization techniques: automated e xposure control; mA and/or kV adjustment per patient size (includes targeted exams where dose is matc hed to clinical indication); or iterative reconstruction. FINDINGS: RIGHT adrenal adenoma measuring 2.1 cm is unchanged since September 12, 2020. Fat attenuation on the noncon trast imaging. Bilateral simple cyst in the liver. Largest in the right hepatic lobe measuring 8.1x 6 .6 x 9.1 CM. Lung bases are well aerated. Normal portal vein and splenic vein. Normal pancreatic pare nchymal enhancement. Normal spleen. Splenic granulomas. LEFT adrenal gland is normal. Normal renal pa renchymal enhancement. No hydronephrosis. Bilateral renal cysts. LEFT peripelvic cyst. No hydronephro sis. Normal excretion on the delayed images. No evidence of obstruction. Normal GE junction. Celiac and SMA are patent. Normal caliber abdominal aorta. Fat-containing umbilical hernia. CT/CT abdomen wo/w con [id number] IMPRESSION: 1. Stable fat attenuation RIGHT adrenal nodule compatible with adrenal adenoma measuring 2.1 cm. 2. Multiple stable simple hepatic cysts largest in the RIGHT hepatic lobe desc ribed above. 3. No hydronephrosis in either kidney. Normal excretion on the delayed images. 4. Bilateral simple cysts. LEFT peripelvic cysts. 5. Normal caliber abdominal aorta. 6. Fat-containing umbilical hernia.
[2021-05-29 09:46] LABS: Blood Urea Nitrogen 15 mg/dL (8-23)
[2021-05-29] MEDS: iohexol 300 mg/mL 100 mL Btl IV (09:58)
== END 2021-05-29 09:05 | disposition home or self-care (01) ==
LOC: RAD 09:05
PROVIDERS: PCP Internal Medicine; Visit Provider Internal Medicine
DX: E27.8 Other specified disorders of adrenal gland (principal); K76.89 Other specified diseases of liver; K42.9 Umbilical hernia without obstruction or gangrene
CPT/HCPCS: 74170; 82565; 84520

== ENCOUNTER → 2021-09-17 10:00 | Outpatient (BNVA) | payer MEDICARE, OTHER, SELFPAY | PROVIDERS: PCP Internal Medicine; Visit Provider Urology | DX: N28.1 Cyst of kidney, acquired (principal); N20.2 Calculus of kidney with calculus of ureter; N20.9 Urinary calculus, unspecified; R31.21 Asymptomatic microscopic hematuria; D35.01 Benign neoplasm of right adrenal gland | CPT/HCPCS: 81003; 99213 ==

== ENCOUNTER 2022-09-16 09:47 | Outpatient (CLI) | payer MEDICARE, OTHER, SELFPAY ==
--- NOTE | 2022-09-16 10:02 | XR_ITS ---
WS: [id number] Exam: XR KUB [id number] Date/Time of Exam: 09/16/2022 10:21 AM Reason For Exam: stones No bowel obstruction or free air. No sign of organ enlargement. No obvious calcifications superimposi ng the renal silhouettes. Bony structures are intact. Mild levoscoliosis of the lumbar spine and dege nerative changes. XR/XR KUB [id number] IMPRESSION: 1. No acute abdominal process noted.
== END 2022-09-16 09:48 | disposition home or self-care (01) ==
LOC: RAD 09:54
PROVIDERS: PCP Internal Medicine; Visit Provider Urology
DX: N20.2 Calculus of kidney with calculus of ureter (principal); N40.1 Benign prostatic hyperplasia with lower urinary tract symptoms; N13.8 Other obstructive and reflux uropathy; N52.9 Male erectile dysfunction, unspecified; R42 Dizziness and giddiness
CPT/HCPCS: 51798; 74018; 81003; 99213

== ENCOUNTER → 2023-01-06 10:46 | Outpatient (BNVA) | payer MEDICARE, OTHER, SELFPAY | PROVIDERS: PCP Internal Medicine; Visit Provider Nurse Practitioner Family | DX: L57.8 Other skin changes due to chronic exposure to nonionizing radiation (principal); L81.4 Other melanin hyperpigmentation; D22.5 Melanocytic nevi of trunk; L85.3 Xerosis cutis; L72.0 Epidermal cyst; L57.0 Actinic keratosis | CPT/HCPCS: 10060; 17000; 99213 ==

== ENCOUNTER → 2023-01-12 15:01 | Outpatient (BNVA) | payer MEDICARE, OTHER, SELFPAY | PROVIDERS: PCP Internal Medicine; Visit Provider Family Medicine | DX: N40.1 Benign prostatic hyperplasia with lower urinary tract symptoms (principal); N13.8 Other obstructive and reflux uropathy; N52.9 Male erectile dysfunction, unspecified; Z12.11 Encounter for screening for malignant neoplasm of colon; R30.0 Dysuria; Z79.899 Other long term (current) drug therapy | CPT/HCPCS: 80053; 80061; 84153; 84439; 84443; 85025 ==

== ENCOUNTER → 2023-01-20 10:21 | Outpatient (BNVA) | payer MEDICARE, OTHER, SELFPAY | PROVIDERS: PCP Internal Medicine; Visit Provider Surgery | DX: Z12.11 Encounter for screening for malignant neoplasm of colon (principal); K42.9 Umbilical hernia without obstruction or gangrene | CPT/HCPCS: 99024; 99203 ==

== ENCOUNTER 2023-02-27 06:29 | Day surgery (SDC) | payer MEDICARE, OTHER, SELFPAY ==
[2023-02-27 06:48] VITALS: BP 152/89; PULSE 80; RESP 16; TEMP 36.1; O2SAT 96; BMI 32.2
[2023-02-27] MEDS: sodium chloride 0.9% 1,000 ML 30 ML IV (06:56)
--- NOTE | 2023-02-27 07:04 | ANES.PREANE2 ---
Pre-Anesthetic Assessment Height/Weight: Height 1.73 m Weight 96.162 kg Temp Pulse Resp BP Pulse Ox O2 Del Method 97.0 F L 80 16 152/89 96 Room Air 02/27/23 06:48 02/27/23 06:48 02/27/23 06:48 02/27/23 06:48 02/27/23 06:48 02/27/23 06:48 Preop Diagnosis: screening Operation Date: 02/27/23 07:45 Proposed Procedures p 32492 colon G0121 screen colon A risk Z12.11(Not Applicable) - Artur Kirkland DO Familial anesthetic complications: none Was Beta Shamika taken within 24 hours: N/A Last intake: Intake Last Liquid Date 02/26/23 Last Liquid Time 22:00 Last Solid Date 02/25/23 Last Solid Time 18:00 Social Alcohol (1-2 drinks per day) and No tobacco Airway Submandibular: within normal limits Cervical ROM: within normal limits Mallampati: Class II Dentition: full Pulmonary None reported CV/HEM Arrythmia (PVCs) and Deep Vein Thrombosis (2013) cyst Hepatic cyst GI None reported Metabolic None reported Musc/skel None reported Neuropsych None reported Anesthetic Plan ASA status: 2 Anesthesia: MAC Medications/Allergies Home Medications Medication Instructions Recorded Confirmed Last Taken Type aspirin 81 mg tablet,delayed 81 mg PO DAILY 08/13/20 02/25/23 02/23/23 History release (Adult Low Dose Aspirin) cholecalciferol (vitamin D3) 50 50 mcg PO DAILY 01/12/23 02/25/23 02/23/23 History mcg (2,000 unit) capsule tadalafil 5 mg tablet (Cialis) 5 mg PO DAILY #30 tabs 01/12/23 02/27/23 02/09/23 Rx tamsulosin 0.4 mg capsule 0.8 mg PO DAILY 02/26/23 02/26/23 02/26/23 History Allergies Allergy/AdvReac Type Severity Reaction Status Date / Time No Known Allergies Allergy Verified 01/20/23 10:47 Current Medications Generic Name Dose Route Start Last Admin Trade Name Freq PRN Reason Stop Dose Admin Sodium Chloride 1,000 mls @ 30 mls/hr 02/27/23 06:45 02/27/23 06:56 Sodium Chloride 0.9% IV 02/28/23 06:44 30 mls/hr .Q24H ROXANA Administration PFSH Anesthesia Medical History Adenoma of right adrenal gland Asymptomatic microscopic hematuria BPH (benign prostatic hyperplasia) BPH w urinary obs/LUTS Diverticulosis DVT (deep venous thrombosis) Erectile dysfunction Hepatic cyst Hx of colonic polyps Parapelvic renal cyst Premature ventricular contraction Urolithiasis Not prolific. Did require treatment with lithotripsy. Calcium oxalate monohydrate. Surgical History History of colonoscopy (~2009) History of cystoscopy (05/2017) with stent right ureter for stone Hx of circumcision Hx of lithotripsy (05/2017) Family History Father , age 82 of metastatic prostate cancer Cancer Hypertension Sister Cancer Breast Hypertension Mother , age 76 from Alzheimer's Dementia Other Clotting disorder Stroke Denies family history of Diabetes CAD (coronary artery disease) Hyperlipidemia Psychiatric illness Chronic kidney disease (CKD) Anesthesia complication Bleeding disorder Lung disease Social History Smoking and tobacco/nicotine status: former use of tobacco/nicotine Quit status (tobacco/nicotine): has quit using Alcohol intake: current Alcohol intake frequency: 0-2 Drinks per Day Substance/Drug Use: never Lives independently: Yes Marital status: Current occupational status: retired Data Anesthesia Cardiac Studies: No Data to Display
--- NOTE | 2023-02-27 07:38 | PM.HP ---
Providers/Chief Complaint Primary Care Provider: Matthew Orellana MD Chief Complaint: Z12.11 History of Present Illness Ap Matta is a 73 year old male Review of Systems General: Reports: 10 or more systems reviewed and unremarkable except in HPI and below Medications/Allergies Home Medications Medication Instructions Recorded Confirmed Last Taken Type aspirin 81 mg tablet,delayed 81 mg PO DAILY 08/13/20 02/25/23 02/23/23 History release (Adult Low Dose Aspirin) cholecalciferol (vitamin D3) 50 50 mcg PO DAILY 01/12/23 02/25/23 02/23/23 History mcg (2,000 unit) capsule tadalafil 5 mg tablet (Cialis) 5 mg PO DAILY #30 tabs 01/12/23 02/27/23 02/09/23 Rx tamsulosin 0.4 mg capsule 0.8 mg PO DAILY 02/26/23 02/26/23 02/26/23 History Allergies Allergy/AdvReac Type Severity Reaction Status Date / Time No Known Allergies Allergy Verified 01/20/23 10:47 PFSH Acute PFSH: Medical History Adenoma of right adrenal gland Asymptomatic microscopic hematuria BPH (benign prostatic hyperplasia) BPH w urinary obs/LUTS Diverticulosis DVT (deep venous thrombosis) Erectile dysfunction Hepatic cyst Hx of colonic polyps Parapelvic renal cyst Premature ventricular contraction Urolithiasis Not prolific. Did require treatment with lithotripsy. Calcium oxalate monohydrate. Surgical History History of colonoscopy (~2009) History of cystoscopy (05/2017) with stent right ureter for stone Hx of circumcision Hx of lithotripsy (05/2017) Family History Father , age 82 of metastatic prostate cancer Cancer Hypertension Sister Cancer Breast Hypertension Mother , age 76 from Alzheimer's Dementia Other Clotting disorder Stroke Denies family history of Diabetes CAD (coronary artery disease) Hyperlipidemia Psychiatric illness Chronic kidney disease (CKD) Anesthesia complication Bleeding disorder Lung disease Social History Smoking and tobacco/nicotine status: former use of tobacco/nicotine Quit status (tobacco/nicotine): has quit using Alcohol intake: current Alcohol intake frequency: 0-2 Drinks per Day Substance/Drug Use: never Lives independently: Yes Marital status: Current occupational status: retired Vitals/I&O/Wt Last Vital Signs Temp 97.0 F L 02/27/23 06:48 Pulse 80 02/27/23 06:48 Resp 16 02/27/23 06:48 BP 152/89 02/27/23 06:48 Pulse Ox 96 02/27/23 06:48 O2 Del Method Room Air 02/27/23 06:48 Weight last 48 hrs Weight 212 lb A&P Assessment and plan (1) Encounter for screening for malignant neoplasm of colon: Plan Colonoscopy Attestations Medical Necessity Statement*: Home Coding Level of Care Code Acute Code for Chg Fwd Diagnoses Encounter for screening for malignant neoplasm of colon Z12.11
[2023-02-27 07:53] VITALS: BP 132/78; PULSE 59; RESP 12; TEMP 36.1; O2SAT 98
[2023-02-27 08:08] VITALS: BP 127/87; PULSE 69; RESP 16; O2SAT 96
--- NOTE | 2023-02-27 12:43 | ANE.PACU2 ---
Inpatient post-anesthesia follow up: Airway intact: Yes Vital signs: Temperature 97.0 F Pulse Rate 69 Respiratory Rate 16 Blood Pressure 127/87 Pulse Oximetry 96 Oxygen Delivery Me thod Room Air Oxygen Flow Rate Fraction of Inspir ed Oxygen Hydration adequate: Yes Nausea and vomiting: No Pain level: 2 Mental status: Baseline
== END 2023-02-27 08:21 | disposition home or self-care (01) ==
PROVIDERS: PCP Family Medicine; Visit Provider Surgery
PROC: 0DJD8ZZ Inspection of Lower Intestinal Tract, Via Natural or Artificial Opening Endoscopic (ICD-10-PCS; CPT 45378; principal; 2023-02-27 07:45)
DX: Z12.11 Encounter for screening for malignant neoplasm of colon (principal); K57.30 Diverticulosis of large intestine without perforation or abscess without bleeding; Z79.82 Long term (current) use of aspirin; N40.1 Benign prostatic hyperplasia with lower urinary tract symptoms; N13.8 Other obstructive and reflux uropathy; Z86.718 Personal history of other venous thrombosis and embolism; Z86.010 Personal history of colon polyps; Z87.891 Personal history of nicotine dependence
CPT/HCPCS: G0121; J2704; J7030

== ENCOUNTER → 2023-06-30 10:41 | Outpatient (BNVA) | payer MEDICARE, OTHER, SELFPAY | PROVIDERS: PCP Family Medicine; Visit Provider Nurse Practitioner | DX: J02.9 Acute pharyngitis, unspecified (principal) | CPT/HCPCS: 87880 ==

== ENCOUNTER → 2024-01-07 11:02 | Outpatient (BNVA) | payer MEDICARE, OTHER, SELFPAY | PROVIDERS: PCP Family Medicine; Visit Provider Nurse Practitioner Family | DX: E88.2 Lipomatosis, not elsewhere classified (principal); D48.5 Neoplasm of uncertain behavior of skin; L57.8 Other skin changes due to chronic exposure to nonionizing radiation; L81.4 Other melanin hyperpigmentation; D22.5 Melanocytic nevi of trunk | CPT/HCPCS: 11104; 17000; 99213 ==

== ENCOUNTER → 2024-07-19 08:30 | Outpatient (BNVA) | payer MEDICARE, OTHER, SELFPAY | PROVIDERS: PCP Family Medicine; Visit Provider Family Medicine | DX: Z13.6 Encounter for screening for cardiovascular disorders (principal); N40.1 Benign prostatic hyperplasia with lower urinary tract symptoms; N13.8 Other obstructive and reflux uropathy; Z12.5 Encounter for screening for malignant neoplasm of prostate | CPT/HCPCS: 80053; 80061; 84153; 85025 ==

== ENCOUNTER → 2025-01-05 14:05 | Outpatient (BNVA) | payer MEDICARE, OTHER, SELFPAY | PROVIDERS: PCP Family Medicine; Visit Provider Nurse Practitioner Family | DX: E88.2 Lipomatosis, not elsewhere classified (principal); L57.8 Other skin changes due to chronic exposure to nonionizing radiation; L81.4 Other melanin hyperpigmentation; B35.1 Tinea unguium; L72.0 Epidermal cyst; L57.0 Actinic keratosis | CPT/HCPCS: 10060; 17000; 99213 ==

== ENCOUNTER → 2025-01-19 07:06 | Outpatient (BNVA) | payer MEDICARE, OTHER, SELFPAY | PROVIDERS: PCP Family Medicine; Visit Provider Podiatrist Foot & Ankle Surgery | DX: L60.0 Ingrowing nail (principal); L60.3 Nail dystrophy; I10 Essential (primary) hypertension | CPT/HCPCS: 11750; 99203; J9999 ==